=== PATIENT | female | born 1960 | race Caucasian/White ===

== ENCOUNTER → 2016-12-13 | Outpatient (CLI) | payer OTHER ==
--- NOTE | 2016-12-13 15:00 | DI ---
HISTORY: Left-sided neck pain radiating down left arm and into hand x1 week. FINDINGS: Examination reveals slight narrowing of the intervertebral disc space between C5/C6 sugges ting mild degenerative discogenic changes with no evidence of recent fracture or dislocation. IMPRESSION: 1. Degenerative changes without acute fracture.
== END ==
LOC: RAD 13:22
PROVIDERS: ATTEND Physician Assistant Medical
DX: M54.2 Cervicalgia (principal); M47.812 Spondylosis without myelopathy or radiculopathy, cervical region
CPT/HCPCS: 72050